=== PATIENT | female | born 1995 | race Caucasian/White ===

== ENCOUNTER 2024-10-26 09:04 | Outpatient (CLI) | payer BC, SELFPAY ==
--- NOTE | ~2024-10-26 | MMUS_ITS ---
EXAMINATION: US breast BI complete, MM diagnostic donavan BI w sammy HISTORY: Palpable left breast abnormality. TECHNIQUE: Additional 3-D tomosynthesis images of the breasts were performed and synthetic 2-D images were generated. CAD analysis was submitted and interpreted. High resolution complete bilateral breas t ultrasound was performed. COMPARISON: None BREAST PARENCHYMAL COMPOSITION: Dense: The breasts are extremely dense, which lowers the sensitivity of mammography. FINDINGS: MAMMOGRAPHIC FINDINGS: There are no suspicious masses, calcifications or architectural distortion in either breast to sugges t malignancy. ULTRASOUND: Complete US of all 4 quadrants of the breast/s and retroareolar region was reviewed. Right breast: At 2:00, 1 cm from the nipple there is a 6 mm cyst. At 6:00, 1 cm from the nipple there is an oval circumscribed parallel oriented hypoechoic mass with subtle posterior acoustic enhancemen t and no internal vascularity measuring 5 mm. At 8:00, 5 cm from the nipple there is a 4 mm cyst. Left breast: At 2:00, 7 cm from the nipple in the area palpable concern there is a 6 mm cyst. No susp icious sonographic abnormalities in either breast to suggest malignancy. IMPRESSION: 1. No evidence for malignancy in the left breast. Benign finding. Probable benign right breast mass l ocated at 6:00, 1 cm from the nipple. 2. Recommend 6 month follow-up Limited right breast ultrasound BI-RADS category 3, probably benign findings. Reviewed, dictated and finalized at location A. RMAN IMPRESSION: 1. No evidence for malignancy in the left breast. Benign finding. Probable marilee gn right breast mass located at 6:00, 1 cm from the nipple. 2. Recommend 6 month follow-up Limited right breast ultrasound BI-RADS category 3, probably benign findings.
== END 2024-10-26 09:05 | disposition home or self-care (01) ==
PROVIDERS: PCP Family Medicine; Visit Provider Obstetrics & Gynecology
DX: N64.4 Mastodynia (principal); R92.8 Other abnormal and inconclusive findings on diagnostic imaging of breast
CPT/HCPCS: 76641; 77062; 77066; G0279

== ENCOUNTER 2025-04-25 08:06 | Outpatient (CLI) | payer BC, SELFPAY ==
--- NOTE | ~2025-04-25 | MMUS_ITS ---
EXAMINATION: US breast RT limited, MM diagnostic donavan RT w sammy HISTORY: Fibrous disease. TECHNIQUE: Additional 3-D tomosynthesis images of the right breast were performed and synthetic 2-D i mages were generated. CAD analysis was submitted and interpreted. High resolution Limited right breas t ultrasound was performed. COMPARISON: 10/26/2024 BREAST PARENCHYMAL COMPOSITION: Dense: The breasts are extremely dense, which lowers the sensitivity of mammography. FINDINGS: MAMMOGRAPHIC FINDINGS: There are no suspicious masses, calcifications or architectural distortion in the right breast to sug gest malignancy. ULTRASOUND: Limited right breast ultrasound: At 6:00, 1 cm from the nipple there is an oval hypoechoic mass measu ring 9 x 6 x 3 mm with parallel orientation, circumscribed margins, no internal vascularity and subtl e posterior acoustic enhancement. The mass is slightly larger and with altered morphology compared wi th prior examination, although still likely benign.. IMPRESSION: 1. Probable benign right breast mass at 6:00, 1 cm from the nipple measuring 9 mm. 2. Recommend 6 month follow-up Limited right breast ultrasound. BI-RADS category 3, probably benign findings. Reviewed, dictated and finalized at location [] IMPRESSION: 1. Probable benign right breast mass at 6:00, 1 cm from the nipple measuring 9 mm. 2. Recommend 6 month follow-up Limited right breast ultrasound. BI-RADS category 3, probably benign findings.
== END 2025-04-25 08:07 | disposition home or self-care (01) ==
PROVIDERS: PCP Family Medicine; Visit Provider Obstetrics & Gynecology
DX: N60.31 Fibrosclerosis of right breast (principal); R92.8 Other abnormal and inconclusive findings on diagnostic imaging of breast
CPT/HCPCS: 76642; 77061; 77065; G0279

== ENCOUNTER 2025-08-11 16:27 | Emergency (ER) | payer BC, SELFPAY ==
[2025-08-11 16:29] VITALS: BP 125/95; PULSE 99; RESP 16; TEMP 36.6; O2SAT 99
--- OUTSIDE RECORDS SUMMARY | 2025-08-11 16:30 | XMS_ITS | Clinical Summary ---
Author Organization [facility] Address [facility] [place] [address] Care Team Providers Care Internet Retailer Name Role Phone Jagjit Hernandez DO Primary Care Provider + Allergies Active Allergy Reactions Criticality Noted Date Comments Banana Anxiety,Palpitations ,Rash,Shortness of breath,Tinnitus High 01/30/2019 Nickel Rash High 10/30/2019 Medications LORazepam (ATIVAN) 0.5 mg tabletIndicatio ns:Anxiety TAKE 1 TABLET(0.5 MG) BY MOUTH EVERY 8 HOURS NEEDED FOR ANXIETY 30 tablet 5 05/04/2023 Active FLUoxetine (PROzac) 20 mg capsule Take 1 capsule (20 mg total) by mouth daily 90 capsule 1 05/05/2023 Active Active Problems Problem Noted Date Diagnosed Date Recurrent major depression 05/05/2023 Assessment & Plan (05/05/2023 9:39 AM CDT): Chronic problem, recently worsened. Restart prozac 20 mg daily as worked well for her symptoms before. Discussed with patient about common side effects of medication including potential for worsening symptoms or new/worsening suicidal thoughts. Should this occur, patient should stop the medication immediately and call/RTC or go to ER. Medications for depression/anxiety can take up to 4-6 weeks to reach maximum effectiveness in the body. Call office to report any concerning side effects or new/worsening symptoms. Attention deficit hyperactiv ity disorder (ADHD), combined type 10/19/2022 Assessment & Plan (10/19/2022 4:07 PM CRUDE TESTER): Change to concerta low dose Chronic wrist pain 04/23/2020 Annual physical exam 03/16/2019 Assessment & Plan (10/19/2022 4:06 PM CRUDE TESTER): Chart reviewed Assessment & Plan (03/05/2021 3:00 PM CDT): Refill ativan Assessment & Plan (04/23/2020 3:07 PM CDT): Cont rx Assessment & Plan (03/16/2019 11:46 AM CDT): No new orders Paresthesias 01/30/2019 Assessment & Plan (01/30/2019 11:55 AM CDT): Check lab Refer to wash u per pt request Other chronic sinusitis 08/25/2017 Bacterial vaginosis 02/08/2014 Hidradenitis suppurativa 07/30/2011 Assessment & Plan (10/19/2022 4:06 PM CRUDE TESTER): Refer to dermatology Resolved Problems Problem Noted Date Diagnosed Date Resolved Date Cellulitis 11/19/2020 08/26/2021 Assessment & Plan (11/19/2020 4:59 PM CRUDE TESTER): Add keflex 250 mg qid 7 days Fall involving ice skates 04/23/2020 Urinary tract infection 09/13/201908/27 Upper respiratory infection 09/13/2019 08/26/2021 Assessment & Plan (09/13/2019 2:18 PM CRUDE TESTER): tamiflu Amoxicillin Rib pain on left side 01/30/20192020 Assessment & Plan (01/30/2019 12:00 PM CDT): X ray Anxiety 07/12/2018 10/19/2022 Assessment & Plan (11/19/2020 4:55 PM CRUDE TESTER): Stable refill med Assessment & Plan (05/17/2019 5:30 PM CDT): Doing very well Assessment & Plan (04/26/2019 2:49 PM CDT): No etoh Assessment & Plan (01/30/2019 11:56 AM CDT): Continue current rx Depression 07/10/2016 10/19/2022 Assessment & Plan (11/19/2020 4:55 PM CRUDE TESTER): Patient is well controlled. Continue current treatment. Assessment & Plan (04/23/2020 3:07 PM CDT): effexor Assessment & Plan (05/17/2019 5:30 PM CDT): Patient is well controlled. Continue current treatment. Assessment & Plan (04/26/2019 2:48 PM CDT): prozac 20 mg daily No etoh Acute vaginitis 07/11/2015 08/26/2021 Immunizations Immunization Administration Dates Next Due Influenza, Unspecified 06/27/2022(Deferr ed: Patient Refused),06/01/2021(Deferred: Patient Refused) Tdap 10/30/2019 Surgical History Surgery Date Site/Laterality Comments AL DELIVERY ONLY Section Low Transverse - (Added by TW Conv) SECTION x 2 Medical History Medical History Date Comments Peripheral neuropathy Depression Anxiety Family History Medical History Relation Name Comments No Known Problems Brother 2 No Known Problems Father Diabetes type II Maternal Grandfather Fam denise history of type 2 diabetes mellitus - (Added by TW Conv) Hyperlipidemia Maternal Grandfather Famil y history of hyperlipidemia - (Added by TW Conv) Hypertension Maternal Grandfather Family history of hypertension - (Added by TW Conv) Diabetes type II Maternal Grandmother Fam denise history of type 2 diabetes mellitus - (Added by TW Conv) Hyperlipidemia Maternal Grandmother Famil y history of hyperlipidemia - (Added by TW Conv) Hypertension Maternal Grandmother Family history of hypertension - (Added by TW Conv) Hyperlipidemia Mother Family histor y of hyperlipidemia - (Added by TW Conv) Hypertension Mother Family history of hypertension - (Added by TW Conv) No Known Problems Sister 2 Asthma Son 1 1 Asperger's syndrome Son 2 1 Relation Name Status Comments Brother 2 Alive Father Alive Maternal Grandfather Maternal Grandmother Mother Alive Sister 2 Alive Son 1 1 Alive Son 2 1 Alive Social History Tobacco Use Types Packs/Day Years Used Date Smoking Tobacco: Every Day Cigarettes Smokeless Tobacco: Never Tobacco Cessation:Ready to Q uit: Not Asked; Counseling Given: Not Answered Alcohol Use Standard Drinks/Week Comments Yes 0 (1 standard drink = 0.6 oz pur e alcohol) 1-2 glasses of wine a night AUDIT-C Answer Date Recorded Q1: How often do you have a drink containing alc ohol? 2-4 times a month 10/19/2022 Q2: How many drinks containi ng alcohol do you have on a typical day when you are drinking? 1 or 2 10/19/2022 Q3: How often do you have si x or more drinks on one occasion? Never 10/19/2022 PHQ-2 Answer Date Recorded PHQ-2 Total Score (If total score is 3 or more points, staff should administer the PHQ-9) 2 05/05/2023 Personal Safety Answer Date Recorded Getting School Help Needed Not on file 09/25 Comments Unknown Sex and Gender Information Value Date Recorded Sex Assigned at Not on file Legal Sex Female 9:54 PM CRUDE TESTER Gender Identity Female 11/17/2020 12:35 PM CRUDE TESTER Sexual Orientation Straight 11/17/2020 12 :35 PM CRUDE TESTER Last Filed Vital Signs Vital Sign Reading Time Taken Comments Blood Pressure 118/70 10/19/2022 3:47 PM CRUDE TESTER Pulse 86 10/19/2022 3:47 PM CRUDE TESTER Temperature 35.8 C (96.5 F) 10/19/2022 3:47 PM CRUDE TESTER Respiratory Rate 16 10/19/2022 3:47 PM CRUDE TESTER Oxygen Saturation 96% 10/19/2022 3:47 PM CRUDE TESTER Inhaled Oxygen Concentration - - Weight 56.7 kg (125 lb) 05/05/2023 9:28 AM CDT Height 165.1 cm (5' 5) 05/05/2023 9:28 AM CDT Body Mass Index 20.8 05/05/2023 9:28 AM CDT Plan of Treatment Health Maintenance Due Date Last Done Comments Cervical Cancer Screening 1993 Hepatitis C Screening 1993 Varicella Vaccines (1 of 2 - 13+ 2-dose series) 2006 Hepatitis B Screening 2011 Pneumococcal vaccine <65 (1 of 2 - PCV) 02/02/2012 HPV Vaccines (1 - 3-dose SCD M series) 02/02/2020 Regular Well Visit/Exam 18-64 10/19/2023, 10/19/2022, 03/05/2021, Additional history exists Depression Screening 05/05/2024 05/05/2023, 03/11/2022, 04/23/2020, Additional history exists Covid-19 Vaccine (3 - 2024-2 6 season) 2025 10/30/2020, 09/30/2020 Influenza Vaccine (#1) 2025 DTaP/Tdap/Td Vaccine (2 - Td or Tdap) 10/30/2029 10/30/2019 [place] [employer] [place] [employer] [place] Care Teams Internet Retailer Relationship Specialty Start Date End Date Jagjit Hernandez DO PCP - General Family Medicine 01/18/19
--- OUTSIDE RECORDS SUMMARY | 2025-08-11 16:31 | XMS_ITS | Clinical Summary ---
Author Organization [facility] Address [address] [place] [id number] Care Team Providers Care Shrimp Cleaner Name Role Phone Jagjit Ferguson Primary Care Provider [phone] Allergies Active Allergy Reactions Criticality Noted Date Comments Ascorbate Itching,Throat swelling 08/28/2019 PT ALLERGY TO BANANAS Medications lorazepam 0.5 MG tablet Take 0.5 mg by mouth. 05/17/2019 Active Family History Medical History Relation Comments None Father None Mother Relation Status Comments Father Alive Mother Alive Social History Tobacco Use Types Packs/Day Years Used Date Smoking Tobacco: Every Day Cigarettes Smokeless Tobacco: Never Alcohol Use Standard Drinks/Week Comments Yes 0 (1 standard drink = 0.6 oz pur e alcohol) SOCIALLY Comments No Sex and Gender Information Value Date Recorded Sex Assigned at Not on file Legal Sex Female 8:24 PM CDT Gender Identity Not on file Sexual Orientation Not on file Last Filed Vital Signs Vital Sign Reading Time Taken Comments Blood Pressure 128/75 08/28/2019 5:30 PM JEWELRY DIPPER Pulse 84 08/28/2019 5:30 PM JEWELRY DIPPER Temperature 37 C (98.6 F) 08/28/2019 5:30 PM JEWELRY DIPPER Respiratory Rate 20 08/28/2019 5:30 PM JEWELRY DIPPER Oxygen Saturation 99% 08/28/2019 5:34 PM JEWELRY DIPPER Inhaled Oxygen Concentration - - Weight 54.4 kg (120 lb) 08/28/2019 5:30 PM JEWELRY DIPPER Height 167.6 cm (5' 6) 08/28/2019 5:30 PM JEWELRY DIPPER Body Mass Index 19.37 08/28/2019 5:30 PM JEWELRY DIPPER Plan of Treatment Health Maintenance Due Date Last Done Comments Cervical Cancer Screening Pa p Smear (Age 30 to 64) Every 3 Years 1993 Annual Physical 02/02/1996 Hepatitis C 2011 DTaP, Tdap and Td Vaccines ( 1 - Tdap) 02/02/2012 Hepatitis B Vaccines (1 of 3 - 19+ 3-dose series) 02/02/2012 Pneumococcal Vaccine: Pediat rics (0 to 5 Years) and At-Risk Patients (6 to 49 Years) (1 of 2 - PCV) 02/02/2012 HPV Vaccines (1 - 3-dose SCD M series) 02/02/2020 Cervical Cancer Screening Pa p with HPV Testing (Age 30 to 64) Every 5 Years 2023 Cervical Cancer Screening with HPV 2023 COVID-19 Vaccine (1 - 2024-2 6 season) 2025 Influenza Adult (#1) 2025 Hepatitis A Vaccines Aged Out No long er eligible based on patient's age to complete this topic Meningococcal B Vaccine Aged Out No l onger eligible based on patient's age to complete this topic Meningococcal Vaccine Aged Out No diego samantha eligible based on patient's age to complete this topic RSV Immunizations Under 20 Months Aged Out No longer eligible based on patient's age to complete this topic Insurance Care Teams Shrimp Cleaner Relationship Specialty Start Date End Date Jagjit Ferguson DO PCP - General 05/19/14
--- NOTE | 2025-08-11 16:52 | ED.EYEPROB ---
HPI - Eye Problem General Chief complaint: Eye Problems Stated complaint: burn my eye Time Seen by Provider: 08/11/25 16:53 Source: patient Mode of arrival: ambulatory Limitations: no limitations History of Present Illness HPI Narrative: Boiling oil splashed to left eye prior to arrival nasal corner of the left eye. No other injuries. Patient was able to irrigate her eye prior to arrival. Currently pain is mild to moderate. No vision change. Related Data Allergies Allergy/AdvReac Type Severity Reaction Status Date / Time banana Allergy Unknown SWELLING, Unverified 11/19/17 11:08 RESPIRATORY DISTRESS watermelon Allergy Unknown SWELLING, Verified 11/19/17 11:08 RESPIR. DISTRESS [place] Allergy Unknown SWELLING, Uncoded 11/19/17 11:08 RESPIR. 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 is normal as tested, no gross motor deficit Course Vital Signs Vital signs: Vital Signs Temperature 36.6 C 08/11/25 16:29 Pulse Rate 99 08/11/25 16:29 Respiratory Rate 16 08/11/25 16:29 Blood Pressure 125/95 H 08/11/25 16:29 Pulse Oximetry 99 08/11/25 16:29 Oxygen Delivery Room Air 08/11/25 16:29 Temperature 36.6 C 08/11/25 16:29 Pulse Rate 99 08/11/25 16:29 Respiratory Rate 16 08/11/25 16:29 Blood Pressure 125/95 H 08/11/25 16:29 Pulse Oximetry 99 08/11/25 16:29 Oxygen Delivery Room Air 08/11/25 16:29 Procedures Other Procedure Procedure 1: Other Procedure: Left eye tetracaine eyedrops, fluorescent strep, positive fluorescent uptake at the nasal corner of the eye otherwise within normal limit. Patient tolerated the procedure well, MDM - Eye Problem MDM Narrative Medical decision making narrative: In the ED patient had tetracaine eyedrops, fluorescent test was showing some irritation of the sclera at the nasal side of the eye, cornea is intact no abrasion or ulceration or damage. Patient received erythromycin ointment prior to discharge. Differential Diagnosis Differential diagnosis: Likely other (Conjunctivitis) Critical Care Time Critical Care Time Critical Care Time: No Discharge Plan Discharge Clinical Impression: Conjunctivitis Patient Disposition: Home Condition: Improved Instructions: Antibiotic Form, Conjunctivitis (ED) Additional Instructions: Return if symptoms are worsening , call your family physician for appointment, take Tylenol, ibuprofen as as needed for aches and pain, continue home medications. Patient Language: Iranian Prescriptions: New erythromycin 5 mg/gram (0.5 %) ointment 0.5 inch LEFT EYE QID Qty: 1 0RF Follow-up/Referrals: Mary,Jagjit Grant MD [Primary Care Provider]
[2025-08-11] MEDS: TETRACAINE HCL 0.5% OPHTH SOLN 4 ML BTL 1 DROP LEFT EYE (18:06)
[2025-08-11] MEDS: ERYTHROMYCIN OPHTH OINTMENT 1 GM TUBE 1 APPLIC LEFT EYE (18:07)
[2025-08-11] MEDS: FLUORESCEIN SOD 1 MG/STRIP LEFT EYE (18:07)
== END 2025-08-11 18:08 | disposition home or self-care (01) ==
PROVIDERS: Emergency Provider Emergency Medicine; PCP Family Medicine
DX: H10.9 Unspecified conjunctivitis (principal)
CPT/HCPCS: 99283; A9270